=== PATIENT | male | born 1980 | race Caucasian/White ===

== ENCOUNTER 2016-11-16 10:50 | Emergency (ER) | payer OTHER ==
--- NOTE | ~2016-11-16 | CR20 ---
[facility] A Service of [facility] RADIOLOGY TEXT RESULTS PATIENT: SUJATA BURTON LOCATION: SED : 84 UNIT #: [id number] AGE: [address]: LOUISA DURHAM SEX: M ORDER DR: [id number] [place] [id number] E MR#: [id number] Acc #: [id number] NAME: SUJATA BURTON. : 1980 SEX: M STUDY DATE/TIME: 11/16/2016 11:05 UNIT: SED ROOM: STUDY DESCRIPTION: CR Ankle Min 3 Views Lt Attending Physician: Louisa Durham Ordering Physician: Louisa Durham Primary Care Physician: Primary Care Physician No MEDICAL IMAGING REPORT This report is preliminary unless electronic signature is present. EXAM Left ankle 3 views, 11/16/2016 11:05 hours COMPARISON None HISTORY Patient rolled his ankle 2 days ago, pain, swelling and difficulty weightbearing. COMPARISON None FINDINGS AP, lateral and oblique views demonstrate evidence of an old healed distal fibula fracture with fracture bowing. There is an exostosis from the medial aspect of the distal fibula projecting between the tibia and fibula most likely related to old trauma. There may be bony fusion across the distal tibia/fibula syndesmosis. There are ossicles at the distal fibula and adjacent to the medial malleolus likely chronic. No definite acute fracture is seen. There is narrowing of the ankle joint with spurring indicating osteoarthritis. IMPRESSION Old healed fracture deformities of the distal fibula with ossicles present likely chronic. There is narrowing of the tibiotalar articulation with spurring and sclerosis suggesting osteoarthritis. There is a large osteophyte from the posterior aspect of the talus which could be congenital or related to trauma. No acute bony changes are seen. Dictated by... Sita Plummer M.D. [facility] A Service of [facility] RADIOLOGY TEXT RESULTS PATIENT: SUJATA BURTON LOCATION: SED : 82 UNIT #: [id number] AGE: [address]: LOUISA DURHAM SEX: M ORDER DR: THIS IS AN ELECTRONICALLY VERIFIED REPORT Sita Plummer M.D. at 11/17/2016 3:27 PM Eugenio TD: 11/16/2016 16:07 JOB #: [id number] MEDICAL IMAGING REPORT Page 1 of 1
--- NOTE | ~2016-11-16 | CR126 ---
[facility] A Service of [facility] RADIOLOGY TEXT RESULTS PATIENT: SUJATA BURTON [place] [facility] [place] #: [id number] AGE: [address]: LOUISA DURHAM SEX: M ORDER DR: [id number] [address] [address] [id number] E MR#: [id number] Acc #: [id number] NAME: SUJATA BURTON. : 1980 SEX: M STUDY DATE/TIME: UNIT: SED ROOM: STUDY DESCRIPTION: CR Foot Complete Min 3 View Lt Attending Physician: Louisa Durham Ordering Physician: Louisa Durham Primary Care Physician: Primary Care Physician No MEDICAL IMAGING REPORT This report is preliminary unless electronic signature is present. EXAM Left foot 3 views, 11/16/2016 11:05 hours HISTORY 36-year-old man who rolled his ankle 2 days ago complaining of pain and swelling around the ankle. Difficulty weightbearing. Previous fracture at age 19. COMPARISON 11/16/2016 ankle film. No remote films. FINDINGS AP, lateral and oblique views demonstrate normal bone density. There is no acute foot fracture. Fifth metatarsal is intact. Patient has a large ossicle/accessory ossicle posterior talus with spurring which is a potential source of pain. There is an ossicle anteriorly at the tibiotalar articulation as well perhaps related to previous trauma. IMPRESSION No acute foot fracture. There is a large spur or ossicle from the posterior talus as well as the anterior ankle joint most likely due to degenerative change from previous fracture. Dictated by... Sita Plummer M.D. THIS IS AN ELECTRONICALLY VERIFIED REPORT Sita Plummer M.D. at 11/17/2016 3:27 PM Eugenio TD: 11/16/2016 15:50 JOB #: [id number] [facility] A Service of [facility] RADIOLOGY TEXT RESULTS PATIENT: BURTON,SUJATA E LOCATION: SED : 84 UNIT #: [id number] AGE: [address]: LOUISA DURHAM SEX: M ORDER DR: MEDICAL IMAGING REPORT Page 1 of 1
[~2016-11-16 10:50] MED LIST: CELEXA10 M1; DEPAKOTE; MOTRIN PO; NO MEDICATIONS; ROBAXIN 750750 M1 PO; ZYPREXA
== END 2016-11-16 12:43 | disposition home or self-care (01) ==
LOC: SED 10:50
DX: S93.402A Sprain of unspecified ligament of left ankle, initial encounter (principal); F17.200 Nicotine dependence, unspecified, uncomplicated; X58.XXXA Exposure to other specified factors, initial encounter; Y92.009 Unspecified place in unspecified non-institutional (private) residence as the place of occurrence of the external cause
CPT/HCPCS: 29515; 73610; 73630; 99283